=== PATIENT | male | born 1950 | race Caucasian/White ===

== ENCOUNTER → 2016-11-14 | Outpatient (REF) | payer MEDICARE, OTHER ==
[~2016-11-14] MED LIST: /GLYB5TA OR; /WARF5TA PO; COUM7.5T PO; EUCECRE2 TOP; GLUC500T OR; LISI10TA4 OR; LOVE0.8I SC; LOVE0.8I SQ; LOVENOX SQ; ROSU10TA OR; WARF5VL IV
== END ==
LOC: M LAB REF 13:13
PROVIDERS: ATTEND Nurse Practitioner Adult Health
DX: R35.0 Frequency of micturition (principal)

== ENCOUNTER 2018-07-31 07:23 | Day surgery (SDC) | payer MEDICARE, OTHER ==
[2018-07-31] MEDS: OFLOXACIN 0.3 % (OCUFLOX) OPTH SOL 5ML OD (07:00)
[2018-07-31] MEDS: TROPICAMIDE 1% OPHTH SOLN 2ML OD (07:00)
[2018-07-31] MEDS: PHENYLEPHRINE 2.5% OPHTH SOL 2ML OD (07:00)
[2018-07-31] MEDS: PROPARACAINE 0.5% OPHTH SOL 15ML OD (07:00)
[2018-07-31 08:23] LABS: BEDSIDE GLUCOSE 216 MG/DL (83-110)
[2018-07-31] MEDS ORDERED: MIDAZOLAM INJ 2 MG/2 ML VIAL (J2250) As Ordered (08:38)
[2018-07-31] MEDS ORDERED: fentaNYL 100 MCG/2 ML INJECTION (J3010) As Ordered (08:38)
[2018-07-31] MEDS: POVIDONE-IODINE 5% OPHTH PREP SOL 30ML As Ordered (08:57)
[2018-07-31] MEDS: LIDOCAINE 0.75%/EPINEPHRINE 0.025% IN BSS 1ML SYR INTRACAMERAL (OR ONLY) As Ordered (08:57)
[2018-07-31] MEDS: BALANCED SALT IRRIGATION SOLUTION 500ML BAG (FOR OR EYE MACHINE) As Ordered (08:57)
[2018-07-31] MEDS: CEFUROXIME 1MG/0.1ML INTRACAMERAL INJ As Ordered (08:57)
[2018-07-31] MEDS: DUOVISC (0.50ML VISCOAT/0.55ML PROVISC) OPHTH KIT As Ordered (08:57)
== END 2018-07-31 09:50 | disposition home or self-care (01) ==
LOC: M SDC 07:23
DX: H25.11 Age-related nuclear cataract, right eye (principal); I10 Essential (primary) hypertension; E78.00 Pure hypercholesterolemia, unspecified; E11.65 Type 2 diabetes mellitus with hyperglycemia; M12.9 Arthropathy, unspecified; G47.33 Obstructive sleep apnea (adult) (pediatric); G90.9 Disorder of the autonomic nervous system, unspecified; R94.31 Abnormal electrocardiogram [ECG] [EKG]; Z79.899 Other long term (current) drug therapy; Z79.4 Long term (current) use of insulin; Z79.01 Long term (current) use of anticoagulants; Z86.718 Personal history of other venous thrombosis and embolism
CPT/HCPCS: 66984

== ENCOUNTER → 2018-09-19 | Outpatient (REF) | payer MEDICARE, OTHER ==
[~2018-09-19] MED LIST changes: +GLIM2TAB PO; +LANTINJ4 SQ; +LOSA50TA88 PO; +METF-839 PO; +NOVOINJ3 SQ; +ROSU10TA5 PO; +XARE20TA PO
[2018-09-21 10:21] LABS: LDL DIRECT 97 mg/dL (0-99)
== END ==
LOC: M LAB REF 15:38
PROVIDERS: ATTEND Nurse Practitioner Adult Health
DX: E78.2 Mixed hyperlipidemia (principal)

== ENCOUNTER → 2020-09-27 | Outpatient (REF) | payer MEDICARE, OTHER ==
[~2020-09-27] MED LIST changes: -/GLYB5TA OR; -/WARF5TA PO; +COUM1TAB17 PO; +CRES10TA32 OR; -GLIM2TAB PO; +GLIM2TAB4 PO; +GLYB1TAB29 OR; -ROSU10TA OR; -ROSU10TA5 PO; +ROSU10TA6 PO
[2020-09-29 08:10] LABS: LDL DIRECT 92 mg/dL (0-99)
== END ==
LOC: M LAB REF 16:15
PROVIDERS: ATTEND Nurse Practitioner Adult Health
DX: E11.65 Type 2 diabetes mellitus with hyperglycemia (principal)

== ENCOUNTER 2021-03-24 15:56 | Emergency (ER) | payer MEDICARE, OTHER ==
[~2021-03-24] VITALS: Ht 165.1 cm; Wt 109.1 kg
[2021-03-24 16:49] LABS: BASO % 0.3 % (0.0-1.0); EOS # 0.1 10^3/uL (0.0-0.5); HEMATOCRIT 43.3 % (42.0-52.0); HEMOGLOBIN 14.5 g/dl (13.5-17.5); LYMPH # 0.9 10^3/uL (1.5-5.0); LYMPH % 11.2 % (24.0-44.0); MEAN CORPUSCULAR HEMOGLOBIN 31.3 pg (27.0-33.0); MEAN CORPUSCULAR HGB CONC 33.5 g/dl (32.0-36.5); MEAN CORPUSCULAR VOLUME 93.3 fl (80.0-96.0); MONO # 0.8 10^3/uL (0.0-0.8); MONO % 10.2 % (2.0-8.0); NEUTROPHILS # 5.9 10^3/uL (1.5-8.5); NEUTROPHILS % 76.5 % (36.0-66.0); PLATELET COUNT, AUTOMATED 163 10^3/uL (150-450); RED BLOOD COUNT 4.64 10^6/uL (4.30-6.10); WHITE BLOOD COUNT 7.7 10^3/uL (4.0-10.0)
--- NOTE | 2021-03-24 16:56 | REP ---
INDICATION: CHEST PAIN. COMPARISON: None. TECHNIQUE: AP view FINDINGS: The lungs are clear. The heart is slightly enlarged. There is no failure. No pleural fluid. IMPRESSION: No active process. <Electronically signed by Seng Carlin > 03/24/21 [id number]
[2021-03-24 17:10] LABS: INR 1.53; PROTHROMBIN TIME 18.8 SECONDS (12.7-14.5)
[2021-03-24 17:11] LABS: PARTIAL THROMBOPLASTIN TIME 35.9 SECONDS (25.9-37.0)
[2021-03-24 17:34] LABS: ALBUMIN 3.8 GM/DL (3.2-5.2); BILIRUBIN,DIRECT 0.1 MG/DL (0.0-0.2); BILIRUBIN,TOTAL 0.5 MG/DL (0.2-1.0); CALCIUM LEVEL 9.1 MG/DL (8.8-10.2); CREATININE FOR GFR 1.3 MG/DL (0.70-1.30); FREE T4 0.85 NG/DL (0.76-1.46); GLOMERULAR FILTRATION RATE 57.6 (>42); POTASSIUM SERUM 4.7 MEQ/L (3.5-5.1); THYROID STIMULATING HORMONE 1.77 uIU/ML (0.358-3.740); TOTAL PROTEIN 7.9 GM/DL (6.4-8.2)
[2021-03-24] MEDS ORDERED: GLIP10TA18 PO (18:53)
[2021-03-24] MEDS ORDERED: ISOVUE-370 76% 100ML VIAL As Ordered ONE (19:46)
[2021-03-24] MEDS ORDERED: ASPIRIN 81 MG CHEW TABLET PO ONE (20:30)
--- NOTE | 2021-03-24 20:53 | REPVR ---
PROCEDURE INFORMATION: Exam: CTA Chest With Contrast Exam date and time: 03/24/2021 8:28 PM Age: 71 years old Clinical indication: Other: Chest pain, a fib, HX of dvt TECHNIQUE: Imaging protocol: Computed tomographic angiography of the chest with contrast. 3D rendering (Not supervised by radiologist): MIP and/or 3D reconstructed images were created by the technologist. Radiation optimization: All CT scans at this facility use at least one of these dose optimization techniques: automated exposure control; mA and/or kV adjustment per patient size (includes targeted exams where dose is matched to clinical indication); or iterative reconstruction. Contrast material: ISOVUE 370; Contrast volume: 100 ml; Contrast route: INTRAVENOUS (IV); COMPARISON: CR PORTABLE CHEST X-RAY 03/24/2021 4:30 PM FINDINGS: Pulmonary arteries: Normal. No pulmonary emboli. Aorta: Unremarkable. No aortic aneurysm. No aortic dissection. Lungs: 8 mm noncalcified subpleural nodule in the right middle lobe. No other masses. No airspace consolidation. Pleural spaces: No pneumothorax. No pleural effusion. Heart: Mild cardiomegaly. Three-vessel coronary artery atherosclerotic disease. Lymph nodes: Mildly enlarged bilateral mediastinal and hilar lymph nodes. Largest subcarinal lymph node measures 3.0 cm. Largest right hilar lymph node measures 2.4 cm. Dystrophic calcifications are present in some of the lymph nodes. Bones/joints: Unremarkable. No acute fracture. Soft tissues: Unremarkable. IMPRESSION: 1. No pulmonary embolism. 2. 8 mm right middle lobe nodule. For patients at low risk (minimal or absent history of smoking and of other known risk factors), recommend CT Chest at 6-12 months, then consider CT Chest at 18-24 months. For patients at high risk (history of smoking or of other known risk factors), recommend CT Chest at 6-12 months, then CT Chest at 18-24 months. (Reference: Amber) 3. Mediastinal and hilar lymphadenopathy of uncertain significance. Calcifications within the lymph nodes may be secondary to previous granulomatous infection but are nonspecific. REFERENCES: Amber Sprague, et al. Guidelines for Management of Incidental Pulmonary Nodules Detected on CT Images: From the Fleischner Society 2017. Radiology. 2017;284(1):228-243. Electronically signed by: Pierre Moeller On 03/24/2021 20:53:00 PM
[2021-03-24] MEDS ORDERED: METO1TAB87 PO (22:38)
[2021-03-24] MEDS ORDERED: METOPROLOL TART 25 MG TABLET PO ONE (22:40)
[2021-03-24 22:45] VITALS: BP 137/81
[2021-03-24 23:01] VITALS: BP 134/78
--- NOTE | 2021-03-25 08:16 | ED PDOC ---
Post-Departure Follow-Up radiology report faxed to Iris Hurley MD Mar 25, 2021 08:16
--- NOTE | 2021-03-25 08:55 | ECGEPIP ---
[facility] - ED Test Date: 2021-03-24 Pat Name: REX DILLON Department: Room: - Gender: Male [employer] Operator: DIANELYS : [id number] Requested By: LIZZIE Villalobos Order Number: [id number] Reading MD: Carlos Euceda Measurements Intervals [place] Rate: 128 P: [place]: QRS: -52 QRSD: 122 T: 147 QT: 316 QTc: 461 Interpretive Statements Atrial flutter with variable AV block with premature ventricular or aberrantly conducted complexes Left anterior fascicular block Minimal voltage criteria for LVH, may be normal variant ( [place] product ) Nonspecific T wave abnormality NO PRIORS FOR COMPARISON Electronically Signed on 03-25-2021 8:54:52 EDT by Carlos Euceda
== END 2021-03-24 23:07 | disposition home or self-care (01) ==
LOC: M ED 15:56
DX: I48.92 Unspecified atrial flutter (principal); I48.91 Unspecified atrial fibrillation; R91.1 Solitary pulmonary nodule; I44.4 Left anterior fascicular block; R59.9 Enlarged lymph nodes, unspecified; E11.9 Type 2 diabetes mellitus without complications; I10 Essential (primary) hypertension; E78.5 Hyperlipidemia, unspecified; Z79.4 Long term (current) use of insulin; Z79.899 Other long term (current) drug therapy
CPT/HCPCS: 71045; 71275; 80048; 80076; 83690; 83880; 84439; 84443; 84484; 85025; 85610; 85730; 93005; 93041; 94760; 96374; 99285; Q9967

== ENCOUNTER 2021-08-11 00:02 | Emergency (ER) | payer MEDICARE, OTHER ==
[~2021-08-11] VITALS: Ht 177.8 cm; Wt 109.1 kg
[~2021-08-11 00:02] MED LIST changes: +GLIP10TA18 PO; +METO1TAB87 PO
[2021-08-11] MEDS ORDERED: NS 1,000 ML IV ONE (01:20)
[2021-08-11 01:31] LABS: BASO % 0.2 % (0.0-1.0); EOS % 0.6 % (0.0-3.0); HEMOGLOBIN 14.5 g/dl (13.5-17.5); LYMPH # 0.6 10^3/uL (1.5-5.0); LYMPH % 10.5 % (24.0-44.0); MEAN CORPUSCULAR HGB CONC 33.7 g/dl (32.0-36.5); MEAN CORPUSCULAR VOLUME 91.9 fl (80.0-96.0); MONO # 0.9 10^3/uL (0.0-0.8); MONO % 15.8 % (2.0-8.0); NEUTROPHILS # 3.9 10^3/uL (1.5-8.5); PLATELET COUNT, AUTOMATED 140 10^3/uL (150-450); RED BLOOD COUNT 4.68 10^6/uL (4.30-6.10); WHITE BLOOD COUNT 5.4 10^3/uL (4.0-10.0)
[2021-08-11 01:40] LABS: ALBUMIN 3.3 GM/DL (3.2-5.2); BILIRUBIN,DIRECT 0.2 MG/DL (0.0-0.2); BILIRUBIN,TOTAL 0.4 MG/DL (0.2-1.0); CALCIUM LEVEL 8.8 MG/DL (8.8-10.2); CREATININE FOR GFR 1.57 MG/DL (0.70-1.30); GLOMERULAR FILTRATION RATE 46.3 (>42); POTASSIUM SERUM 4.1 MEQ/L (3.5-5.1); TOTAL PROTEIN 7.6 GM/DL (6.4-8.2)
[2021-08-11 01:54] LABS: RSV AMPLIFICATION NEGATIVE (NEGATIVE)
[2021-08-11] MEDS ORDERED: NS 1,000 ML IV SCH (03:50)
[2021-08-11] MEDS ORDERED: GLUCAGON INJ 1MG VIAL SC PRN (03:50)
[2021-08-11] MEDS ORDERED: DEXTROSE 50% 50 ML SYRINGE IV PRN (03:50)
[2021-08-11] MEDS ORDERED: GLUCOSE 4GM CHEW TABLET PO PRN (03:50)
[2021-08-11] MEDS ORDERED: ACETAMINOPHEN TAB 650MG DOSE (2X325MG) PO PRN (03:55)
[2021-08-11] MEDS ORDERED: AZITHROMYCIN INJ 500 MG, VIAL MATE ADAPTER 1 EACH in NS 250 ML IV SCH (05:00)
[2021-08-11] MEDS ORDERED: cefTRIAXone SOD 1 GM in D5W MINI-BAG PLUS 50 ML IV SCH (06:00)
[2021-08-11] MEDS ORDERED: HumaLOG INSULIN (NovoLOG) PER UNIT SC SCH (07:30)
[2021-08-11] MEDS ORDERED: TOPR50TA PO (07:33)
[2021-08-11] MEDS ORDERED: HOME MED LIST COMPLETE! XX SCH (07:35)
[2021-08-11 08:52] LABS: C REACTIVE PROTEIN QUANTITATIV 8.11 MG/DL (0.00-0.30)
[2021-08-11 08:55] LABS: BILIRUBIN,DIRECT 0.1 MG/DL (0.0-0.2); BILIRUBIN,TOTAL 0.4 MG/DL (0.2-1.0); C REACTIVE PROTEIN QUANTITATIV 8.16 MG/DL (0.00-0.30); MAGNESIUM LEVEL 1.9 MG/DL (1.8-2.4); TOTAL PROTEIN 6.7 GM/DL (6.4-8.2)
[2021-08-11] MEDS ORDERED: REMDESIVIR 200 MG in NS 250 ML IV ONE (09:00)
[2021-08-11] MEDS ORDERED: dexameTHASONE 4 MG/ML 1ML VIAL (J1100 PER 1MG) IV SCH (09:00)
[2021-08-11 09:22] LABS: INR 1.07; PROTHROMBIN TIME 14.4 SECONDS (12.7-14.5)
[2021-08-11 09:23] LABS: PARTIAL THROMBOPLASTIN TIME 35.9 SECONDS (25.9-37.0)
[2021-08-11 09:25] LABS: D-DIMER QUANT 502.92 ng/ml (<500)
[2021-08-11 10:11] LABS: CALCIUM LEVEL 8.4 MG/DL (8.8-10.2); CREATININE FOR GFR 1.35 MG/DL (0.70-1.30); GLOMERULAR FILTRATION RATE 55.2 (>42); POTASSIUM SERUM 3.8 MEQ/L (3.5-5.1)
[2021-08-11] MEDS ORDERED: SODIUM CHLORIDE 0.9% INJ 10 ML SYR IV ONE (11:00)
[2021-08-11 13:28] VITALS: BP 136/87
[2021-08-12] MEDS ORDERED: REMDESIVIR 100 MG in NS 250 ML IV SCH (09:00)
[2021-08-12] MEDS ORDERED: SODIUM CHLORIDE 0.9% INJ 10 ML SYR IV SCH (10:00)
== END 2021-08-11 13:38 | disposition home or self-care (01) ==
LOC: M ED 00:02 → M ED INP 03:43 → UNDOADMIN 03:43 → UNDODISIN 13:25 → M ED 13:38
DX: U07.1 COVID-19 (principal); R53.1 Weakness; I48.91 Unspecified atrial fibrillation; E11.9 Type 2 diabetes mellitus without complications; E78.5 Hyperlipidemia, unspecified; R51.9 Headache, unspecified; Z79.01 Long term (current) use of anticoagulants; Z79.899 Other long term (current) drug therapy
CPT/HCPCS: 36415; 71046; 80048; 80076; 82728; 83615; 83735; 83880; 84145; 85025; 85379; 85384; 85610; 85730; 86140; 87631; 96361; 96375; 99284; J0456; M0245

== ENCOUNTER 2021-08-11 10:46 | Outpatient (CLI) | payer MEDICARE, OTHER ==
[~2021-08-11 10:46] MED LIST changes: +ACETAMINOPHEN TAB 650MG DOSE (2X325MG) PO PRN; +ALBUTEROL 90 MCG/ACT 8GM HFA INHALER INH PRN; +ALBUTEROL SULFATE 2.5 MG/0.5 ML INH NEB SOLN INH PRN; +CASIRIVIMAB/IMDEVIMAB 1,200 MG in NS 250 ML IV ONE; +EPINEPHrine INJ 1 MG/ML 1ML AMP IM PRN; +NS 1,000 ML IV SCH; +TOPR50TA PO; +diphenhydrAMINE 50MG/ML VIAL (J1200) IV PRN; +methylPREDNISolone 125MG 2ML VIAL IV PRN
[2021-08-11] MEDS ORDERED: BAMLANIVIMAB 700 MG, ETESEVIMAB 1,400 MG in NS 250 ML IV ONE (13:00)
[2021-08-11 14:09] VITALS: BP 128/68
[2021-08-11 14:39] VITALS: BP 142/67
[2021-08-11 15:09] VITALS: BP 144/68
[2021-08-11 16:10] VITALS: BP 141/76
== END 2021-08-11 16:11 | disposition home or self-care (01) ==
LOC: M OPCLI4 10:46
PROVIDERS: ATTEND Internal Medicine
DX: U07.1 COVID-19 (principal)

== ENCOUNTER → 2021-12-18 | Outpatient (CLI) | payer MEDICARE, OTHER ==
[~2021-12-18] MED LIST changes: -ACETAMINOPHEN TAB 650MG DOSE (2X325MG) PO PRN; -ALBUTEROL 90 MCG/ACT 8GM HFA INHALER INH PRN; -ALBUTEROL SULFATE 2.5 MG/0.5 ML INH NEB SOLN INH PRN; -CASIRIVIMAB/IMDEVIMAB 1,200 MG in NS 250 ML IV ONE; -EPINEPHrine INJ 1 MG/ML 1ML AMP IM PRN; +ISOVUE-370 76% 100ML VIAL ONE; +LOSA50TA28 PO; -LOSA50TA88 PO; -NS 1,000 ML IV SCH; -diphenhydrAMINE 50MG/ML VIAL (J1200) IV PRN; -methylPREDNISolone 125MG 2ML VIAL IV PRN
== END ==
LOC: M PLAIMG 12:52
PROVIDERS: ATTEND Nurse Practitioner Adult Health
DX: R91.8 Other nonspecific abnormal finding of lung field (principal)
CPT/HCPCS: 71260; Q9967

== ENCOUNTER → 2021-12-29 | Outpatient (CLI) | payer MEDICARE, OTHER ==
[~2021-12-29] MED LIST changes: -ISOVUE-370 76% 100ML VIAL ONE
== END ==
LOC: M RAD 11:42
PROVIDERS: ATTEND Physician Assistant
DX: I73.9 Peripheral vascular disease, unspecified (principal)

== ENCOUNTER → 2022-01-04 | Outpatient (REF) | payer MEDICARE, OTHER ==
[2022-01-06 04:08] LABS: LDL DIRECT 90 mg/dL (0-99)
== END ==
LOC: M LAB REF 16:26
PROVIDERS: ATTEND Nurse Practitioner Adult Health
DX: E78.2 Mixed hyperlipidemia (principal)

== ENCOUNTER → 2022-01-04 | Outpatient (REF) | payer MEDICARE, OTHER | LOC: M LAB REF 12:20 | PROVIDERS: ATTEND Nurse Practitioner Adult Health | DX: M25.50 Pain in unspecified joint (principal) ==

== ENCOUNTER → 2022-02-22 | Outpatient (CLI) | payer MEDICARE, OTHER | LOC: M RAD 12:41 | PROVIDERS: ATTEND Nurse Practitioner Family | DX: R91.8 Other nonspecific abnormal finding of lung field (principal) ==

== ENCOUNTER → 2022-10-04 | Outpatient (CLI) | payer MEDICARE, OTHER ==
[2022-10-04 15:45] LABS: CREATININE FOR GFR 1.3 MG/DL (0.70-1.30); GLOMERULAR FILTRATION RATE 57.4 (>42)
== END ==
LOC: M LAB 14:31
PROVIDERS: ATTEND Surgery Vascular Surgery
DX: I70.213 Atherosclerosis of native arteries of extremities with intermittent claudication, bilateral legs (principal)

== ENCOUNTER → 2022-10-09 | Outpatient (CLI) | payer MEDICARE, OTHER | LOC: M RAD 13:01 | PROVIDERS: ATTEND Physician Assistant | DX: I70.213 Atherosclerosis of native arteries of extremities with intermittent claudication, bilateral legs (principal) ==

== ENCOUNTER → 2022-10-09 | Outpatient (CLI) | payer MEDICARE, OTHER ==
[~2022-10-09] MED LIST changes: +ISOVUE-370 76% 100ML VIAL As Ordered ONE
== END ==
LOC: M RAD 13:06
PROVIDERS: ATTEND Internal Medicine Pulmonary Disease
DX: R91.8 Other nonspecific abnormal finding of lung field (principal); I70.213 Atherosclerosis of native arteries of extremities with intermittent claudication, bilateral legs
CPT/HCPCS: 71250; 75635; Q9967

== ENCOUNTER → 2022-11-14 | Outpatient (REF) | payer MEDICARE, OTHER ==
[~2022-11-14] MED LIST changes: -ISOVUE-370 76% 100ML VIAL As Ordered ONE
[2022-11-16 08:10] LABS: LDL DIRECT 92 mg/dL (0-99)
== END ==
LOC: M LAB REF 16:14
PROVIDERS: ATTEND Nurse Practitioner Adult Health
DX: E78.2 Mixed hyperlipidemia (principal)

== ENCOUNTER 2022-12-13 21:50 | Emergency (ER) | payer MEDICARE, OTHER ==
[~2022-12-13] VITALS: Ht 177.8 cm; Wt 115.6 kg
[2022-12-13 21:50] VITALS: BP 184/88
== END 2022-12-14 00:23 | disposition left against medical advice (07) ==
LOC: M ED 21:50
DX: Z53.21 Procedure and treatment not carried out due to patient leaving prior to being seen by health care provider (principal)

== ENCOUNTER → 2023-05-27 | Outpatient (REF) | payer MEDICARE, OTHER | LOC: M LAB REF 16:51 | PROVIDERS: ATTEND Podiatrist | DX: L03.125 Acute lymphangitis of right lower limb (principal); M79.671 Pain in right foot ==

== ENCOUNTER 2025-03-03 21:43 | Emergency (ER) | payer MEDICARE, OTHER ==
[~2025-03-03] VITALS: Ht 177.8 cm; Wt 102.3 kg
[~2025-03-03 21:43] MED LIST changes: +GLIP-320 PO; -GLIP10TA18 PO; -ROSU10TA6 PO; +ROSU10TA61 PO
[2025-03-03 22:57] LABS: BASO # 0.0 10^3/uL (0.0-0.2); BASO % 0.3 % (0.0-1.0); EOS # 0.0 10^3/uL (0.0-0.5); EOS % 0.1 % (0.0-3.0); LYMPH # 0.4 10^3/uL (1.5-5.0); LYMPH % 6.3 % (24.0-44.0); MONO # 1.0 10^3/uL (0.0-0.8); MONO % 15.3 % (2.0-8.0); NEUTROPHILS # 5.1 10^3/uL (1.5-8.5); NEUTROPHILS % 76.7 % (36.0-66.0); PLATELET COUNT, AUTOMATED 199 10^3/uL (150-450)
[2025-03-04 02:02] LABS: CALCIUM LEVEL 7.9 MG/DL (8.3-10.6); CARBON DIOXIDE LEVEL 28.0 MMOL/L (20-31); CHLORIDE LEVEL 103.0 MMOL/L (98-107); CREATININE FOR GFR 1.41 MG/DL (0.70-1.30); GLOMERULAR FILTRATION RATE 51.3 (>42); MAGNESIUM LEVEL 2.4 MG/DL (1.8-2.4); POTASSIUM SERUM 4.2 MMOL/L (3.5-5.1); SODIUM LEVEL 140.0 MMOL/L (136-145)
[2025-03-04] MEDS ORDERED: MOM 30 ML SUSPENSION UDC PO PRN (05:00)
[2025-03-04] MEDS ORDERED: DEXTROSE 50% 50 ML SYRINGE IV PRN (05:00)
[2025-03-04] MEDS ORDERED: GLUCOSE 4 GM CHEW PO PRN (05:00)
[2025-03-04] MEDS ORDERED: GLUCAGON INJ 1 MG VIAL SC PRN (05:00)
[2025-03-04] MEDS: INSULIN LISPRO (NovoLOG) PER UNIT SC SCH (08:09)
[2025-03-04] MEDS ORDERED: DICL100G10 TOP (08:44)
[2025-03-04] MEDS ORDERED: FARX1TAB3 PO (08:44)
[2025-03-04] MEDS ORDERED: SEMA2PEN SQ (08:44)
[2025-03-04] MEDS ORDERED: CILO100T3 PO (08:44)
[2025-03-04] MEDS ORDERED: HOME MED LIST COMPLETE! XX SCH (08:45)
[2025-03-04] MEDS: PANTOPRAZOLE 40MG TAB PO SCH (09:21)
[2025-03-04] MEDS: DOCUSATE SODIUM 100 MG CAPSULE PO SCH (09:21)
[2025-03-04 12:18] VITALS: BP 158/82; TEMP 96.9; O2SAT 97
[2025-03-04] MEDS ORDERED: INSULIN LISPRO (NovoLOG) PER UNIT SC SCH (21:00)
== END 2025-03-04 12:21 | disposition home or self-care (01) ==
LOC: M ED 21:43
DX: M62.81 Muscle weakness (generalized) (principal); R00.0 Tachycardia, unspecified; I44.4 Left anterior fascicular block; I45.81 Long QT syndrome; E11.9 Type 2 diabetes mellitus without complications; I10 Essential (primary) hypertension; E78.5 Hyperlipidemia, unspecified; Z79.4 Long term (current) use of insulin; Z79.84 Long term (current) use of oral hypoglycemic drugs; Z79.01 Long term (current) use of anticoagulants; Z79.899 Other long term (current) drug therapy

== ENCOUNTER 2025-03-25 07:01 | Inpatient (IN) | payer MEDICARE, OTHER ==
[~2025-03-25] VITALS: Ht 177.8 cm; Wt 90.5 kg
[~2025-03-25 07:01] MED LIST changes: +CILO100T3 PO; +DICL100G10 TOP; +FARX1TAB3 PO; +SEMA2PEN SQ
[2025-03-25 08:03] LABS: BASO # 0.0 10^3/uL (0.0-0.2); BASO % 0.2 % (0.0-1.0); EOS # 0.0 10^3/uL (0.0-0.5); EOS % 0.5 % (0.0-3.0); LYMPH # 0.6 10^3/uL (1.5-5.0); LYMPH % 6.6 % (24.0-44.0); MONO # 0.4 10^3/uL (0.0-0.8); MONO % 5.1 % (2.0-8.0); NEUTROPHILS # 7.1 10^3/uL (1.5-8.5); NEUTROPHILS % 85.5 % (36.0-66.0); PLATELET COUNT, AUTOMATED 389 10^3/uL (150-450)
[2025-03-25 08:34] LABS: ALT/SGPT 42.0 U/L (7.0-40); AST/SGOT 32.0 U/L (<34); CALCIUM LEVEL 8.6 MG/DL (8.3-10.6); CARBON DIOXIDE LEVEL 24.0 MMOL/L (20-31); CHLORIDE LEVEL 102.0 MMOL/L (98-107); CREATININE FOR GFR 1.04 MG/DL (0.70-1.30); GLOMERULAR FILTRATION RATE 74.0 (>42); MAGNESIUM LEVEL 1.9 MG/DL (1.8-2.4); POTASSIUM SERUM 4.0 MMOL/L (3.5-5.1); SODIUM LEVEL 139.0 MMOL/L (136-145)
[2025-03-25] MEDS: LIDOCAINE 2% 5 ML JELLY UROJET TOP ONE (08:50)
[2025-03-25 09:17] LABS: KETONE, URINE AUTO RFX TRACE mg/dL (NEGATIVE); LEUKOCYTE ESTERASE UR AUTO RFX NEGATIVE (NEGATIVE); NITRITE, URINE AUTO RFX NEGATIVE (NEGATIVE); RBC, URINE AUTO RFX 1 /HPF (0-3); SQUAM EPITHELIAL CELL UR AURFX 0 /HPF (0-6); WBC, URINE AUTO RFX 3 /HPF (0-3)
[2025-03-25] MEDS ORDERED: GABA-1171 PO (12:35)
[2025-03-25] MEDS ORDERED: HOME MED LIST COMPLETE! XX SCH (12:35)
[2025-03-25] MEDS ORDERED: METOPROLOL 5 MG/5 ML VIAL IV SCH (14:45)
[2025-03-25] MEDS ORDERED: METOPROLOL TART 50 MG TAB PO ONE (14:45)
[2025-03-25] MEDS: METOPROLOL 5 MG/5 ML VIAL IV SCH (16:05)
[2025-03-25] MEDS: GABAPENTIN 100 MG CAP PO SCH (16:42)
[2025-03-25 17:00] VITALS: BP 139/75; TEMP 97.1; O2SAT 100
[2025-03-25] MEDS ORDERED: GLUCOSE 4 GM CHEW PO PRN (17:30)
[2025-03-25] MEDS: INSULIN LISPRO (NovoLOG) PER UNIT SC SCH ×2 (17:30→20:15)
[2025-03-25] MEDS ORDERED: GLUCAGON INJ 1 MG VIAL SC PRN (17:30)
[2025-03-25] MEDS ORDERED: DEXTROSE 50% 50 ML SYRINGE IV PRN (17:30)
[2025-03-25] MEDS: RIVAROXABAN 20MG TAB PO ONE (17:31)
[2025-03-25] MEDS: METOPROLOL TART 25 MG TABLET PO SCH (17:34)
[2025-03-25] MEDS: DIGOXIN INJ 0.5 MG/2 ML AMP IV ONE ×2 (17:58→23:25)
[2025-03-25] MEDS: CILOSTAZOL 100 MG TAB PO SCH (20:17)
[2025-03-25 20:19] VITALS: BP 105/70; TEMP 97.1; O2SAT 95
[2025-03-25] MEDS: RAMELTEON 8 MG TAB PO SCH (23:21)
[2025-03-26 04:08] VITALS: BP 107/63; TEMP 97; O2SAT 96
[2025-03-26 05:24] LABS: CALCIUM LEVEL 8.4 MG/DL (8.3-10.6); CARBON DIOXIDE LEVEL 24.0 MMOL/L (20-31); CHLORIDE LEVEL 104.0 MMOL/L (98-107); CREATININE FOR GFR 1.11 MG/DL (0.70-1.30); GLOMERULAR FILTRATION RATE 68.4 (>42); POTASSIUM SERUM 4.1 MMOL/L (3.5-5.1); SODIUM LEVEL 140.0 MMOL/L (136-145)
[2025-03-26 05:29] LABS: BASO # 0.0 10^3/uL (0.0-0.2); BASO % 0.2 % (0.0-1.0); EOS # 0.0 10^3/uL (0.0-0.5); EOS % 0.4 % (0.0-3.0); LYMPH # 0.9 10^3/uL (1.5-5.0); LYMPH % 8.4 % (24.0-44.0); MONO # 0.8 10^3/uL (0.0-0.8); MONO % 7.9 % (2.0-8.0); NEUTROPHILS # 8.4 10^3/uL (1.5-8.5); NEUTROPHILS % 80.9 % (36.0-66.0); PLATELET COUNT, AUTOMATED 443 10^3/uL (150-450)
[2025-03-26 08:23] VITALS: BP 136/83; TEMP 97; O2SAT 100
[2025-03-26] MEDS ORDERED: LanTUS (INSULIN GLARGINE INJ) 1 UNITS/0.01 ML SC SCH (09:00)
[2025-03-26] MEDS: DAPAGLIFLOZIN PROPANEDIOL 10 MG TABLET PO SCH (09:29)
[2025-03-26] MEDS: DIGOXIN 0.25 MG TAB PO SCH (09:29)
[2025-03-26] MEDS: LanTUS (INSULIN GLARGINE INJ) 1 UNITS/0.01 ML SC SCH (09:30)
[2025-03-26 12:10] VITALS: BP 128/75; TEMP 98; O2SAT 100; O2SAT 98
[2025-03-26 16:00] VITALS: BP_SYST 130; BP_SYST 169; BP_DIAS 69; BP_DIAS 80; TEMP 97; O2SAT 98
[2025-03-26] MEDS: RIVAROXABAN 20MG TAB PO SCH (17:08)
[2025-03-26 20:05] VITALS: BP 119/55; TEMP 97.9; O2SAT 97
[2025-03-26 23:46] VITALS: BP 117/83; TEMP 97.2; O2SAT 98
[2025-03-27 03:35] VITALS: BP 99/58; TEMP 97.1; O2SAT 95
[2025-03-27 05:42] LABS: BASO # 0.0 10^3/uL (0.0-0.2); BASO % 0.2 % (0.0-1.0); EOS # 0.1 10^3/uL (0.0-0.5); EOS % 1.0 % (0.0-3.0); LYMPH # 0.7 10^3/uL (1.5-5.0); LYMPH % 7.6 % (24.0-44.0); MONO # 0.7 10^3/uL (0.0-0.8); MONO % 8.2 % (2.0-8.0); NEUTROPHILS # 7.3 10^3/uL (1.5-8.5); NEUTROPHILS % 81.5 % (36.0-66.0); PLATELET COUNT, AUTOMATED 384 10^3/uL (150-450)
[2025-03-27 06:24] LABS: CALCIUM LEVEL 8.6 MG/DL (8.3-10.6); CARBON DIOXIDE LEVEL 20.0 MMOL/L (20-31); CHLORIDE LEVEL 103.0 MMOL/L (98-107); CREATININE FOR GFR 1.18 MG/DL (0.70-1.30); GLOMERULAR FILTRATION RATE 63.6 (>42); POTASSIUM SERUM 4.4 MMOL/L (3.5-5.1); SODIUM LEVEL 138.0 MMOL/L (136-145)
[2025-03-27] MEDS: ACETAMINOPHEN 325 MG TAB PO ONE (06:38)
[2025-03-27 07:46] VITALS: BP 168/74; TEMP 97.8; O2SAT 96
[2025-03-27] MEDS ORDERED: METOPROLOL TART 25 MG TABLET PO SCH (09:15)
[2025-03-27] MEDS: SENNOSIDES/DOCUSATE SODIUM 8.6 MG/50MG TAB PO SCH (09:59)
[2025-03-27 10:12] VITALS: BP 158/72
[2025-03-27 16:06] VITALS: BP 114/69; TEMP 97.1; O2SAT 96
[2025-03-27] MEDS: INSULIN LISPRO (NovoLOG) PER UNIT SC SCH (17:30)
[2025-03-27 19:29] VITALS: BP 159/86; TEMP 96.9; O2SAT 95
[2025-03-27] MEDS: METOPROLOL SUCC. 50 MG *XL* TAB PO SCH (20:17)
[2025-03-27] MEDS: LanTUS (INSULIN GLARGINE INJ) 1 UNITS/0.01 ML SC SCH (20:23)
[2025-03-28] VITALS (8 sets, daily range): BP systolic 112–161; BP diastolic 60–93; TEMP 97.2–98.1; O2SAT 94–99
[2025-03-28 05:06] LABS: BASO # 0.0 10^3/uL (0.0-0.2); BASO % 0.3 % (0.0-1.0); EOS # 0.1 10^3/uL (0.0-0.5); EOS % 0.9 % (0.0-3.0); LYMPH # 0.5 10^3/uL (1.5-5.0); LYMPH % 8.2 % (24.0-44.0); MONO # 0.5 10^3/uL (0.0-0.8); MONO % 7.9 % (2.0-8.0); NEUTROPHILS # 5.4 10^3/uL (1.5-8.5); NEUTROPHILS % 81.3 % (36.0-66.0); PLATELET COUNT, AUTOMATED 352 10^3/uL (150-450)
[2025-03-28 05:35] LABS: CALCIUM LEVEL 8.7 MG/DL (8.3-10.6); CARBON DIOXIDE LEVEL 22.0 MMOL/L (20-31); CHLORIDE LEVEL 104.0 MMOL/L (98-107); CREATININE FOR GFR 1.14 MG/DL (0.70-1.30); GLOMERULAR FILTRATION RATE 66.2 (>42); POTASSIUM SERUM 4.0 MMOL/L (3.5-5.1); SODIUM LEVEL 138.0 MMOL/L (136-145)
[2025-03-28] MEDS: LanTUS (INSULIN GLARGINE INJ) 1 UNITS/0.01 ML SC SCH (20:47)
[2025-03-29] VITALS (15 sets, daily range): BP systolic 76–129; BP diastolic 52–79; TEMP 96.9–98.8; O2SAT 93–99
[2025-03-29 06:05] LABS: BASO # 0.0 10^3/uL (0.0-0.2); BASO % 0.3 % (0.0-1.0); EOS # 0.1 10^3/uL (0.0-0.5); EOS % 1.0 % (0.0-3.0); LYMPH # 0.8 10^3/uL (1.5-5.0); LYMPH % 8.8 % (24.0-44.0); MONO # 1.0 10^3/uL (0.0-0.8); MONO % 10.4 % (2.0-8.0); NEUTROPHILS # 7.1 10^3/uL (1.5-8.5); NEUTROPHILS % 78.1 % (36.0-66.0); PLATELET COUNT, AUTOMATED 385 10^3/uL (150-450)
[2025-03-29 06:35] LABS: ESTIMATED AVERAGE GLUCOSE 192.0 MG/DL (60-110)
[2025-03-29 06:36] LABS: CALCIUM LEVEL 8.2 MG/DL (8.3-10.6); CARBON DIOXIDE LEVEL 18.0 MMOL/L (20-31); CHLORIDE LEVEL 104.0 MMOL/L (98-107); CREATININE FOR GFR 1.26 MG/DL (0.70-1.30); GLOMERULAR FILTRATION RATE 58.7 (>42); POTASSIUM SERUM 4.2 MMOL/L (3.5-5.1); SODIUM LEVEL 138.0 MMOL/L (136-145)
[2025-03-29 06:37] LABS: DIGOXIN LEVEL 0.7 NG/ML (0.8-2.0)
[2025-03-29] MEDS: TORSEMIDE 20 MG TAB PO SCH (10:17)
[2025-03-29] MEDS: DIGOXIN 0.25 MG TAB PO SCH (14:26)
[2025-03-29] MEDS: NS 500 ML IV ONE ×2 (14:26→19:50)
[2025-03-29] MEDS: METOPROLOL TART 12.5 MG PER 1/2 TAB PO SCH (20:09)
[2025-03-29] MEDS: DIGOXIN INJ 0.5 MG/2 ML AMP IV ONE (20:10)
[2025-03-29] MEDS ORDERED: METOPROLOL SUCC. 25 MG *XL* TAB PO SCH (21:00)
[2025-03-29 23:55] LABS: CALCIUM LEVEL 7.7 MG/DL (8.3-10.6); CARBON DIOXIDE LEVEL 20.0 MMOL/L (20-31); CHLORIDE LEVEL 105.0 MMOL/L (98-107); CREATININE FOR GFR 1.52 MG/DL (0.70-1.30); GLOMERULAR FILTRATION RATE 46.9 (>42); MAGNESIUM LEVEL 1.7 MG/DL (1.8-2.4); POTASSIUM SERUM 4.3 MMOL/L (3.5-5.1); SODIUM LEVEL 138.0 MMOL/L (136-145)
[2025-03-30] VITALS (8 sets, daily range): BP systolic 103–168; BP diastolic 63–85; TEMP 97–97.8; O2SAT 95–97
[2025-03-30] MEDS: MAG SULF 1GM/100ML (MAG RUN) 1 GM in IV 1 EA IV ONE (01:07)
[2025-03-30 05:45] LABS: BASO # 0.0 10^3/uL (0.0-0.2); BASO % 0.3 % (0.0-1.0); EOS # 0.0 10^3/uL (0.0-0.5); EOS % 0.4 % (0.0-3.0); LYMPH # 0.6 10^3/uL (1.5-5.0); LYMPH % 8.6 % (24.0-44.0); MONO # 0.7 10^3/uL (0.0-0.8); MONO % 10.1 % (2.0-8.0); NEUTROPHILS # 5.7 10^3/uL (1.5-8.5); NEUTROPHILS % 78.0 % (36.0-66.0); PLATELET COUNT, AUTOMATED 340 10^3/uL (150-450)
[2025-03-30 06:15] LABS: CALCIUM LEVEL 8.9 MG/DL (8.3-10.6); CARBON DIOXIDE LEVEL 21.0 MMOL/L (20-31); CHLORIDE LEVEL 106.0 MMOL/L (98-107); CREATININE FOR GFR 1.47 MG/DL (0.70-1.30); GLOMERULAR FILTRATION RATE 48.8 (>42); POTASSIUM SERUM 4.0 MMOL/L (3.5-5.1); SODIUM LEVEL 139.0 MMOL/L (136-145)
[2025-03-30 06:38] LABS: DIGOXIN LEVEL 0.8 NG/ML (0.8-2.0)
[2025-03-30] MEDS: NS (Normal Saline) 0.9% 1,000 ML IV SCH (07:59)
[2025-03-30] MEDS: LanTUS (INSULIN GLARGINE INJ) 1 UNITS/0.01 ML SC SCH ×2 (09:46→20:22)
[2025-03-30] MEDS: METOPROLOL SUCC. 50 MG *XL* TAB PO SCH (09:47)
[2025-03-31 03:01] VITALS: BP 144/77; TEMP 97.6; O2SAT 95
[2025-03-31 06:09] LABS: BASO # 0.0 10^3/uL (0.0-0.2); BASO % 0.3 % (0.0-1.0); EOS # 0.1 10^3/uL (0.0-0.5); EOS % 1.2 % (0.0-3.0); LYMPH # 0.5 10^3/uL (1.5-5.0); LYMPH % 6.9 % (24.0-44.0); MONO # 0.7 10^3/uL (0.0-0.8); MONO % 9.0 % (2.0-8.0); NEUTROPHILS # 6.2 10^3/uL (1.5-8.5); NEUTROPHILS % 81.3 % (36.0-66.0); PLATELET COUNT, AUTOMATED 309 10^3/uL (150-450)
[2025-03-31 06:40] LABS: CALCIUM LEVEL 8.7 MG/DL (8.3-10.6); CARBON DIOXIDE LEVEL 20.0 MMOL/L (20-31); CHLORIDE LEVEL 108.0 MMOL/L (98-107); CREATININE FOR GFR 1.12 MG/DL (0.70-1.30); GLOMERULAR FILTRATION RATE 67.7 (>42); POTASSIUM SERUM 4.1 MMOL/L (3.5-5.1); SODIUM LEVEL 140.0 MMOL/L (136-145)
[2025-03-31 07:52] VITALS: BP 152/88; TEMP 97.3; O2SAT 98
[2025-03-31] MEDS ORDERED: DIGO0.253 PO (09:09)
[2025-03-31] MEDS ORDERED: INSULANT SC ×2 (09:09)
[2025-03-31] MEDS ORDERED: DOCU8.6T PO (09:09)
[2025-03-31] MEDS ORDERED: RAME8TAB2 PO (09:09)
[2025-03-31] MEDS ORDERED: MAGN400T33 PO (09:09)
[2025-03-31 09:15] VITALS: BP 152/88
[2025-03-31] MEDS: MAGNESIUM OXIDE 400 MG TAB PO SCH (09:15)
[2025-03-31] MEDS: MAG SULF 1GM/100ML (MAG RUN) 1 GM in IV 1 EA IV SCH (09:17)
== END 2025-03-31 12:05 | DRG 309 ==
LOC: EDBD 07:01 → M ED 07:01 → M ED INP 07:02 → EDBEDREQSVC 14:30 → M PCU 16:58 → OBSVTOIN 03-26 14:04 → EEVIPCON 03-26 14:04 → M MSPAV 03-28 16:49 → M PCU 03-29 18:53
PROVIDERS: ADMIT Internal Medicine Nephrology; ATTEND Internal Medicine
DX: I48.92 Unspecified atrial flutter (principal); N17.9 Acute kidney failure, unspecified; I50.30 Unspecified diastolic (congestive) heart failure; E11.65 Type 2 diabetes mellitus with hyperglycemia; I11.0 Hypertensive heart disease with heart failure; I48.0 Paroxysmal atrial fibrillation; Z86.718 Personal history of other venous thrombosis and embolism; Z79.899 Other long term (current) drug therapy; R54 Age-related physical debility

== ENCOUNTER → 2025-04-21 | Outpatient (REF) ==
[~2025-04-21] MED LIST changes: +DIGO0.253 PO; +DOCU8.6T PO; +GABA-1171 PO; +INSULANT SC; +MAGN400T33 PO; +RAME8TAB2 PO
[2025-04-21 14:11] LABS: BASO # 0.0 10^3/uL (0.0-0.2); BASO % 0.4 % (0.0-1.0); EOS # 0.1 10^3/uL (0.0-0.5); EOS % 1.9 % (0.0-3.0); LYMPH # 1.0 10^3/uL (1.5-5.0); LYMPH % 18.7 % (24.0-44.0); MONO # 0.6 10^3/uL (0.0-0.8); MONO % 12.2 % (2.0-8.0); NEUTROPHILS # 3.4 10^3/uL (1.5-8.5); NEUTROPHILS % 66.0 % (36.0-66.0); PLATELET COUNT, AUTOMATED 351 10^3/uL (150-450)
[2025-04-21 14:33] LABS: CALCIUM LEVEL 9.0 MG/DL (8.3-10.6); CARBON DIOXIDE LEVEL 26.0 MMOL/L (20-31); CHLORIDE LEVEL 102.0 MMOL/L (98-107); CREATININE FOR GFR 1.05 MG/DL (0.70-1.30); GLOMERULAR FILTRATION RATE 73.1 (>42); POTASSIUM SERUM 4.1 MMOL/L (3.5-5.1); SODIUM LEVEL 138.0 MMOL/L (136-145)
== END ==
LOC: SKLAB2 12:22
PROVIDERS: ATTEND Internal Medicine
DX: A69.21 Meningitis due to Lyme disease (principal)